=== PATIENT | male | born 1960 | race Caucasian/White ===

== ENCOUNTER 2019-10-12 09:41 | Emergency (ER) | payer BC, SELFPAY ==
[2019-10-12 09:48] VITALS: BP 119/82; PULSE 109; RESP 20; TEMP 36.8; O2SAT 95
--- NOTE | 2019-10-12 10:07 | ED.PSYCH ---
HPI - Psych General Chief Complaint: Psychiatric Symptoms Stated Complaint: psych eval Time Seen by Provider: 10/12/19 10:04 Source: patient Mode of arrival: EMS Limitations: no limitations History of Present Illness HPI Narrative: The pt is a 59 y/o male who presents to the ED, via EMS, c/o auditory hallucinations. Pt states that these have been occurring for an unknown period of time, but states that he has been hearing them since no one else talks to him. He notes that he simply talks about life. Pt states that these voices have not been threatening in any way, and he does not feel any suicidal or homicidal ideation. 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 He states that he was then told to either come to the ED or go to prison. Pt states that the voices are resolved at this time. Pt denies head injury, LOC, and arthralgia. Pt states that he has a PMHx of depression, bipolar, and psychosis. He notes that he has been hospitalized for mental health issues, but states it has been several years. The pt reports a PMHx of rotator cuff tear with repair, as well as a PSHx of back surgery. He also reports a PMHx of pneumothorax. complaint: other (Auditory hallucinations) Onset (ago): unknown Duration: resolved prior to arrival Associated psychiatric symptoms: none Associated symptoms: shortness of breath and other (Dizziness) Treatments prior to arrival: none Related Data Home Medications Medication Instructions Recorded Confirmed Cholesterol Med 10/12/19 buspirone 10/12/19 Allergies Allergy/AdvReac Type Severity Reaction Status Date / Time No Known Allergies Allergy Verified 10/12/19 09:52 Review of Systems Review of Systems: All systems reviewed & are unremarkable except as noted in HPI and below Respiratory: Respiratory: Reports dyspnea Musculoskeletal: Musculoskeletal: Denies arthralgias Neurologic: Reports dizziness and Denies other (Head injury, LOC) Psychiatric: Psychiatric: Reports auditory hallucinations (Resolved), Denies homicidal ideation and Denies suicidal ideation PMF Past Medical History Medical History (Updated 10/12/19 @ 17:04 by Anup Baig MD) Bipolar disorder Depression Pneumothorax Psychosis Rotator cuff tear Surgical History Surgical History (Updated 10/12/19 @ 10:30 by Fabrizio Keating) Previous back surgery S/P rotator cuff repair Social History Social History (Updated 10/12/19 @ 10:31 by Fabrizio Keating) Smoking status: Unknown if ever smoked Gender identity (if verbalized by the patient): Male Exam Narrative: Exam Narrative: GENERAL: Well-appearing, well-nourished, and in no acute distress. HEAD: Normocephalic, atraumatic. ENT: Mucous membranes moist. CHEST: Clear to auscultation. No respiratory distress. HEART: Regular rate and rhythm. Normal peripheral pulses. EXTREMITIES: Normal range of motion. No edema. SKIN: Warm, dry, no rash. NEURO: Alert and oriented x3. PSYCH: Normal mood and affect. Does not appear to be responding to internal stimuli. Course Course Emergency Course: Patient is now clinically/sober. Awake alert and oriented x3. Denies any SI/HI, denies any hallucinations. Reports he was just intoxicated and only came here because he was given the choice between going to prison or coming to the ER. He will be released to go home. Vital Signs Vital signs: Vital Signs Temperature 98.2 F 10/12/19 09:48 Pulse Rate 109 H 10/12/19 09:48 Respiratory Rate 10/12/19 09:48 Blood Pressure 119/82 10/12/19 09:48 Pulse Oximetry 95 10/12/19 09:48 Temperature 98.2 F 10/12/19 09:48 Pulse Rate 109 H 10/12/19 09:48 Respiratory Rate 20 10/12/19 09:48 Blood Pressure 119/82 10/12/19 09:48 Pulse Oximetry 95 10/12/19 09:48 MDM - Psych Lab Data Result diagra
[2019-10-12 10:31] LABS: Basophils Absolute Auto 0.1 K/mm3 (0.0-0.1); Basophils Percent Auto 0.9 % (0.2-1.2); Eosinophils Absolute Auto 0.2 K/mm3 (0-0.3); Eosinophils Percent Auto 2.4 % (0-4.4); Hematocrit 53.7 % (42.0-52.0); Hemoglobin 18.3 g/dL (14.0-18.0); Immature Granulocyte Absolute 0.02 K/mm3 (0.00-0.031); Immature Granulocyte Percent A 0.3 % (0-0.5); Lymphocytes Absolute Auto 1.84 K/mm3 (0.9-3.2); Lymphocytes Percent Auto 26.4 % (18.3-44.2); Mean Corpuscular HGB Conc 34.1 g/dl (32-36); Mean Corpuscular Hemoglobin 32.9 pg (26-34); Mean Corpuscular Volume 96.4 fl (80-100); Mean Platelet Volume 11.6 fl (7.4-10.4); Monocytes Absolute Auto 0.5 K/mm3 (0.1-0.6); Neutrophils Absolute Auto 4.4 K/mm3 (1.3-6.7); Platelet Count Result 172 k/mm3 (150-375); Red Blood Count 5.57 M/mm3 (4.6-6.20); Red Cell Distribution Width 13.9 % (11.5-14.5)
[2019-10-12 10:44] LABS: Alanine Aminotransferase 23 U/L (4-50); Albumin Level 5.1 g/dL (3.5-5.1); Alkaline Phosphatase 129 U/L (38-126); Aspartate Amino Transferase 34 U/L (17-59); Bilirubin,Total 0.7 mg/dL (0.2-1.3); Blood Urea Nitrogen 7 mg/dL (9-20); Calcium 9.4 mg/dL (8.4-10.2); Carbon Dioxide 27 mmol/L (22-30); Chloride 98 mmol/L (98-107); Estimated CRCL calculation 82 ml/min; Estimated Glomerular Filt Rate > 60; Glucose 122 mg/dL (75-110); Potassium 3.6 mmol/L (3.4-5.0); Sodium 146 mmol/L (137-145)
[2019-10-12 10:46] LABS: Ethanol 219 mg/dL (<10)
[2019-10-12 11:16] LABS: Add Urine Microscopic? YES; Appearance Urine Clear (Clear); Bacteria Urine Trace /hpf; Bilirubin Urine Negative (Negative); Blood Urine 1+ (Negative); Color Urine Yellow (Yellow); Glucose Urine UA Negative (Negative); Hyaline Casts Urine 20-29 /lpf; Ketones Urine Negative (Negative); Leukocyte Esterase Ur Negative LEU/UL (Negative); Mucus Urine Heavy /lpf; Nitrate Urine Negative (Negative); Protein Urine 2+ mg/dL (Negative); RBC Urine 0-2 /hpf (0-2); Specific Grav Ur 1.015 (1.001-1.035); Squamous Epithelial Cell Urine Rare /hpf (Few)
[2019-10-12 11:27] LABS: Amphetamine Screen Urine Negative (Negative); Barbiturate Screen Urine Negative (Negative); Benzodiazepines Screen Urine Negative (Negative); Cannabinoid Screen Urine Positive (Negative); Cocaine Screen Urine Negative (Negative); Methadone Screen Urine Negative (Negative); Opiate Screen Urine Negative (Negative); Phencyclidine Screen Urine Negative (Negative)
--- NOTE | 2019-10-12 14:07 | PC.NURSE ---
Pt curled in position on bed, refusing a blanket, refusing food/water. Pt is forcing himself to vomit by sticking his fingers down his throat.
[2019-10-12 16:42] LABS: Ethanol 66 mg/dL (<10)
--- NOTE | 2019-10-12 17:12 | PC.NURSE ---
EDP spoke with pt, continues to deny SI/HI. denies hearing voices. Pt BAL below the legal limit
[2019-10-12 17:13] VITALS: PULSE 80; RESP 20; TEMP 36.8; O2SAT 99
== END 2019-10-12 17:14 | disposition home or self-care (01) ==
PROVIDERS: Emergency Provider Emergency Medicine; PCP Internal Medicine
DX: F10.920 Alcohol use, unspecified with intoxication, uncomplicated (principal); F31.9 Bipolar disorder, unspecified; Y90.7 Blood alcohol level of 200-239 mg/100 ml
CPT/HCPCS: 36415; 80053; 80307; 81001; 84443; 85025; 99283